=== PATIENT | female | born 1985 | race Caucasian/White ===

== ENCOUNTER 2024-05-17 11:05 | Emergency (ER) | payer OTHER ==
[~2024-05-17] VITALS: Ht 167.6 cm; Wt 152.0 kg
[2024-05-17 11:15] VITALS: O2SAT 98
[2024-05-17] MEDS ORDERED: TRAM50TA2 PO (12:08)
== END 2024-05-17 12:31 | disposition home or self-care (01) ==
LOC: ER 11:05
DX: R10.31 Right lower quadrant pain (principal); W01.0XXA Fall on same level from slipping, tripping and stumbling without subsequent striking against object, initial encounter; Y93.K1 Activity, walking an animal; Y92.89 Other specified places as the place of occurrence of the external cause; Y99.8 Other external cause status
CPT/HCPCS: A4606; A4663